=== PATIENT | female | born 2005 | race Caucasian/White ===

== ENCOUNTER 2025-01-14 07:00 | Outpatient (NON) | payer OTHER, SELFPAY ==
--- NOTE | 2025-01-14 13:12 | S_PTH ---
PATIENT: Shea García LOC: [facility] #:[id number] AGE/SX: 19/F ROOM: RE01/14/[address]: Maliha Jefferson MD : [id number] BED: DIS: 01/14/2025 SPEC #: [id number] RECD: 01/15/25 06:33 STATUS: RISA REQ #: [id number] BRITNEY: 01/14/25 13:[address]: Maliha Jefferson DEPT: [facility] Surgical RECD BY: Claudia Pritchett ENTERED: 01/15/25 06:34 SP TYPE: Surgical OTHR DR: Deondre Segundo MD Tissues: A - Mass Procedures: Hematoxylin and Eosin Stain Gross and Microscopic Level 3 Comments: @ Originally on account #[id number] Req #[id number]
== END 2025-01-14 07:01 | disposition home or self-care (01) ==
LOC: ANHLAB 11-02 13:30
PROVIDERS: Visit Provider Plastic Surgery
DX: L91.0 Hypertrophic scar (principal); D48.5 Neoplasm of uncertain behavior of skin
CPT/HCPCS: 88304

== ENCOUNTER 2025-01-24 08:57 | Emergency (ER) | payer OTHER, SELFPAY ==
--- NOTE | ~2025-01-24 | XR_ITS ---
HISTORY: injury, pain/swelling/bruising great toe, across distal MTs COMPARISON: None TECHNIQUE: 3 views of the right foot were performed. FINDINGS: No acute fracture or dislocation is appreciated. No significant degenerative disease is noted. The base of the fifth metatarsal is intact. No calcaneal spur is noted. Moderate soft tissue swelling is present within the forefoot. IMPRESSION: Soft tissue swelling, without acute fracture. Reviewed, dictated and finalized at location A.
[2025-01-24 09:09] VITALS: BP 111/72; PULSE 73; RESP 18; TEMP 36.5; O2SAT 100
--- NOTE | 2025-01-24 09:16 | ED_ITS ---
HPI - Extremity Injury (Lower) General Chief Complaint: Extremity Injury, Lower Stated Complaint: Injured Toe Right Foot Time Seen by Provider: 01/24/25 09:16 Source: patient Mode of arrival: ambulatory Limitations: no limitations History of Present Illness HPI Narrative: 19 y/o female presented for c/o pain, bruising and swelling to the right great toe and foot. Onset yesterday after injury. Related Data Home Medications ?Medication ?Instructions ?Recorded ?Confirmed ?Last Taken ?Type No Home Medications 03/16/24 03/16/24 Unknown History Allergies Allergy/AdvReac Type Severity Reaction Status Date / Time No Known Allergies Allergy Mild Verified 03/16/24 14:45 Review of Systems Review of Systems: CONSTITUTIONAL: Denies body aches, fever, chills EYES: Denies visual changes ENT: Denies rhinorrhea, congestion CARDIOVASCULAR: Denies chest pain, palpitations, or edema. RESPIRATORY: Denies cough or dyspnea. SKIN: Denies rash, itching, or wounds. MUSCULOSKELETAL: reports back pain, joint pain, or myalgia. NEUROLOGIC: Denies headache, numbness, tingling, or weakness. All systems reviewed & are unremarkable except as noted in HPI and below PMFSH Social History Social History Smoking status: Never smoker Comments At time of signature, I have reviewed and agree with nursing past medical, surgical, social and family history unless otherwise noted. Please see nursing chart for further information. There is no relevant family history pertinent to the presenting complaint Exam Narrative: GENERAL: Well-appearing, well-nourished, and in no acute distress. CHEST: Speaks in full sentences. No respiratory distress. HEART: Regular rate and rhythm. Normal and equal peripheral pulses. EXTREMITIES: has normal strength and sensation, normal range of motion with flexion/extension/rotation, but endorses pain with movement. No/yes edema or ecchymosis, No/yes point tenderness. No open wounds, skin tenting, or obvious deformity; alignment normal, pulse palpable and equal bilaterally, skin warm, dry, pink. Capillary refill less than 3 seconds. SKIN: Warm, dry, no rash. NEURO: Alert and oriented x3. PSYCH: Normal mood and affect Course Course Emergency Course: Patient is aware of diagnosis, understands and agrees to treatment plan. Anticipatory guidance given. Patient agrees to follow-up as directed and is aware of reasons to seek care at the emergency department. Portions of this record may have been created with voice recognition software Level of Care: Express Care Visit Vital Signs Vital signs: Vital Signs Temperature 97.7 F 01/24/25 09:09 Pulse Rate 73 01/24/25 09:09 Respiratory Rate 18 01/24/25 09:09 Blood Pressure 111/72 01/24/25 09:09 Pulse Oximetry 100 01/24/25 09:09 Temperature 97.7 F 01/24/25 09:09 Pulse Rate 73 01/24/25 09:09 Respiratory Rate 18 01/24/25 09:09 Blood Pressure 111/72 01/24/25 09:09 Pulse Oximetry 100 01/24/25 09:09 Reviewed Discharge Plan Discharge Clinical Impression: Sprain of toe, great, right Patient Disposition: Home Condition: Stable Instructions: Antibiotic Form, Toe Fracture (ED) Additional Instructions: Rest - avoid excessive walking or running until symptoms are fully resolved elevate the right leg; bear weight as tolerated Apply ice 15-20 minute intervals several times a day Keep it wrapped with ZITA as needed and use the postop shoe while walking Motrin 600mg every 8 hours, alternate with Tylenol 1000mg every 8 hours as needed Follow up with your primary care provider as needed go to the ER for any worsening symptoms or concerns Patient Language: Latvian Prescriptions: No Action No Home Medications Follow-up/Referrals: PHYSICIAN,IRONING MACHINE OPERATOR [Primary Care Provider] - Husam Portillo MD [Physician] - Time of Disposition: 10:01
--- NOTE | 2025-01-24 10:01 | ED_ITS ---
HPI - Extremity Injury (Lower) General Chief Complaint: Extremity Injury, Lower Stated Complaint: Injured Toe Right Foot Time Seen by Provider: 01/24/25 09:16 Source: patient Mode of arrival: ambulatory Limitations: no limitations Related Data Home Medications ?Medication ?Instructions ?Recorded ?Confirmed ?Last Taken ?Type No Home Medications 03/16/24 03/16/24 Unknown History Allergies Allergy/AdvReac Type Severity Reaction Status Date / Time No Known Allergies Allergy Mild Verified 03/16/24 14:45 [facility] Social History Social History Smoking status: Never smoker Course Vital Signs Vital signs: Vital Signs Temperature 97.7 F 01/24/25 09:09 Pulse Rate 73 01/24/25 09:09 Respiratory Rate 18 01/24/25 09:09 Blood Pressure 111/72 01/24/25 09:09 Pulse Oximetry 100 01/24/25 09:09 Temperature 97.7 F 01/24/25 09:09 Pulse Rate 73 01/24/25 09:09 Respiratory Rate 18 01/24/25 09:09 Blood Pressure 111/72 01/24/25 09:09 Pulse Oximetry 100 01/24/25 09:09 Discharge Plan Discharge Clinical Impression: Sprain of toe, great, right Patient Disposition: Home Condition: Stable Instructions: Antibiotic Form, Toe Fracture (ED) Additional Instructions: Rest - avoid excessive walking or running until symptoms are fully resolved elevate the right leg; bear weight as tolerated Apply ice 15-20 minute intervals several times a day Keep it wrapped with IZTA as needed and use the postop shoe while walking Motrin 600mg every 8 hours, alternate with Tylenol 1000mg every 8 hours as needed Follow up with your primary care provider as needed go to the ER for any worsening symptoms or concerns Patient Language: Sammarinese Prescriptions: No Action No Home Medications Follow-up/Referrals: Husam Portillo MD [Physician] - PHYSICIAN,MANAGER CLINICAL APPLICATIONS [Primary Care Provider] - Time of Disposition: 10:01
== END 2025-01-24 10:15 | disposition home or self-care (01) ==
PROVIDERS: Emergency Provider Nurse Practitioner Family
DX: S93.501A Unspecified sprain of right great toe, initial encounter (principal); W01.0XXA Fall on same level from slipping, tripping and stumbling without subsequent striking against object, initial encounter
CPT/HCPCS: 73630; 99213; G0463